=== PATIENT | male | born 1945 ===

== ENCOUNTER → 2022-07-25 | Outpatient (CLI) | payer MEDICARE ==
[~2022-07-25] VITALS: Ht 167.6 cm; Wt 88.9 kg
[~2022-07-25] MED LIST: DAZIDOX10 MG PO; LASIX 20MG TABL20 MG PO
[2022-07-25 11:01] VITALS: BP 119/73; PULSE 89; TEMP 97.9
[2022-07-25 11:28] VITALS: BP 106/59; PULSE 77
--- NOTE | 2022-07-25 11:29 | NUR ---
See merge for all medication, assessment, intervention, and vital sign times.
[2022-07-25 12:00] VITALS: BP 114/75; PULSE 79
== END ==
LOC: COL.RAD 10:31
DX: C18.3 Malignant neoplasm of hepatic flexure (principal)
CPT/HCPCS: C1729; J2250; J3010